=== PATIENT | male | born 1990 | race Caucasian/White ===

== ENCOUNTER 2019-06-30 23:42 | Emergency (ER) | payer SELFPAY ==
[2019-06-30 23:43] VITALS: BP 142/67; PULSE 74; RESP 14; TEMP 36.6; O2SAT 99; BMI 26.4
--- NOTE | 2019-06-30 23:53 | ED.VIS.GEN ---
History of Present Illness Chief Complaint: Wound Check Narrative: Patient is a 29-year-old male who presents for a wound check. He was doing some work at his house and had a utility knife sitting on the steps. As he walked by he accidentally stepped on a knife and suffered a small puncture wound at the bottom of his left fourth toe. This seemed to have healed well initially but today he developed increased pain and noted some purulent drainage. No fevers nausea vomiting. He is not diabetic. He denies any medical problems or daily medications. Past Medical History - Allergies and Home Meds Allergies/Adverse Reactions: Allergies No Known Allergies Allergy (Verified 06/30/19 23:46) Primary Care Physician: Care Physician,No Primary [Primary Care Provider] - Past Medical History: None Smoking Status: Current every day smoker Review of Systems All systems negative except as indicated General: Denies: Fever Cardiovascular: Denies: Chest pain Respiratory: Denies: Dyspnea Gastrointestinal: Denies: Nausea, Vomiting Skin: Reports: Wounds. Denies: Rash Neurological: Denies: Headache Physical Exam Vital Signs/Narrative: Vital Signs Temp Pulse Resp BP Pulse Ox 06/30/19 23:43 97.8 F 74 14 142/67 H 99 Inital Vital Signs reviewed: Yes General: Well nourished Head: Normocephalic Eyes: EOMI ENT: Moist mucous membranes Neck: Supple Cardiovascular: Regular rate Respiratory: No distress Skin: Normal color, - - There is a 2 to 3 mm puncture wound at the base of the left fourth toe on the plantar surface with a small amount of purulent drainage, no fluctuance or focal abscess, no surrounding cellulitis he has brisk capillary refill with normal sensation and motor function is intact Neurological: Alert Psychological: Normal affect Diagnostic/Tx/Re-eval - Medical Decision Making Wound culture was obtained. Patient was prescribed Keflex and Bactrim. He understands to return for new or worsening symptoms and was advised on signs and symptoms to monitor for and was discharged home. ED Disposition - Plan for ED Patient: Disposition: Home or Assisted Living Diagnosis: Wound infection, Puncture wound of foot Instructions: PUNCTURE WOUND, Foot Prescriptions: Smz/Tmp Ds [Bactrim Ds] 1 tab PO BID #14 tab Prescription Printed Cephalexin [Keflex] 500 mg PO Q6 #40 cap Prescription Printed Referrals: Care Physician,No Primary [Primary Care Provider] -
[2019-07-01] MEDS: Cephalexin 250 MG Capsule 500 MG PO (00:12)
[2019-07-01] MEDS: Smz/Tmp Ds Tablet 1 TABLET PO (00:12)
[2019-07-01] MEDS: Diphth,Pertuss(Acell),Tet Vac 0.5 ML Vial IM (00:12)
[2019-07-01 00:27] VITALS: BP 132/71; PULSE 68; RESP 17; O2SAT 99
--- NOTE | 2019-07-03 08:50 | ED.RN ---
Dr Grant verified no action necessary after receiving culture report.
== END 2019-07-01 00:30 | disposition home or self-care (01) ==
LOC: ED 07-01 00:13
PROVIDERS: Emergency Provider Emergency Medicine
DX: S91.135A Puncture wound without foreign body of left lesser toe(s) without damage to nail, initial encounter (principal); L08.9 Local infection of the skin and subcutaneous tissue, unspecified; W22.8XXA Striking against or struck by other objects, initial encounter; Y93.9 Activity, unspecified; Y92.009 Unspecified place in unspecified non-institutional (private) residence as the place of occurrence of the external cause; Y99.9 Unspecified external cause status; F17.200 Nicotine dependence, unspecified, uncomplicated; Z23 Encounter for immunization
CPT/HCPCS: 87070; 87077; 87186; 87205; 90471; 90715; 99283

== ENCOUNTER 2020-09-08 07:11 | Emergency (ER) | payer OTHER, SELFPAY ==
[2020-09-08 07:13] VITALS: BP 131/73; PULSE 71; RESP 17; TEMP 36.5; O2SAT 96; BMI 26.9
--- NOTE | 2020-09-08 07:25 | ED.DCSUM_ITS ---
History of Present Illness Chief Complaint: Abd Pain Informant: Patient Narrative: 30-year-old male presents for the evaluation of intermittent sharp epigastric pain. Symptoms have been present since yesterday. They last maybe a minute sometimes more. They are nonradiating. No vomiting or diarrhea. Nothing seems to make it better or worse except for laying flat. Denies any prior abdominal surgeries. No fever. No history of gallbladder disease or pancreatitis. Patient has been eating and drinking well. Patient denies any urinary or bowel changes. He wonders if this could be an ulcer as he drinks a bunch. He denies any pain at the current time. Past Medical History - Allergies and Home Meds Allergies/Adverse Reactions: Allergies No Known Allergies Allergy (Verified 09/08/20 07:11) Primary Care Physician: Care Physician,No Primary [Primary Care Provider] - Past Medical History: None Surgical History: noncontributory Smoking Status: Current every day smoker Alcohol: Heavy Drugs: None Review of Systems General: Denies: Chills, Fever, Sweats Eyes: Denies: Visual changes - bilaterally, Diplopia ENT: Denies: Rhinorrhea, Sore throat Cardiovascular: Denies: Chest pain, Palpitations Respiratory: Denies: Dyspnea, Cough, Dyspnea on exertion Gastrointestinal: Reports: Abdominal pain. Denies: Nausea, Vomiting, Diarrhea, Melena, Hematochezia Genitourinary: Denies: Dysuria, Hematuria, Frequency Musculoskeletal: Denies: Back pain, Extremity Pain Skin: Denies: Rash, Wounds Neurological: Denies: Headache, Weakness, Numbness Physical Exam Vital Signs/Narrative: Vital Signs Temp Pulse Resp BP Pulse Ox 09/08/20 07:13 97.7 F L 71 17 131/73 H 96 Inital Vital Signs reviewed: Yes General: Well nourished, Well developed, No Acute Distress Head: Normocephalic, Atraumatic Eyes: Perrl, EOMI ENT: Moist mucous membranes, No rhinorrhea Neck: Supple, Nontender Cardiovascular: Regular rate, Regular rhythm, No murmurs Respiratory: No distress, CTA bilaterally, Chest nontender Abdomen: Soft, Nontender, Nondistended, Normal bowel sounds Back: Nontender, Normal Inspection Extremities: Nontender, No edema Skin: Normal color, No rash Neurological: Alert, Oriented x3, Cranial nerves II-XII grossly intact, Normal Strength, Normal Sensation Psychological: Normal affect, Normal Mood Diagnostic/Tx/Re-eval Clinical Impression(s) from Imaging Studies Abdomen/Pelvis CT 09/08/20 08:13 IMPRESSION: Diffuse submucosal thickening and edema of the stomach including the greater and lesser curvature and the gastric antrum consistent with a diffuse gastritis. No suspicious solid organ abnormality No free intraperitoneal fluid, air, or suspicious adenopathy, there are scattered subcentimeter mesenteric and retroperitoneal lymph nodes suggestive of mesenteric lymphadenitis. Electronically Signed: Albert Gomes MD at 10:34 EDT , Service support , Laboratory Last Values WBC 14.0 K/mm3 (4.4-11.0) H 09/08/20 07:45 RBC 5.28 M/mm3 (4.6-6.2) 09/08/20 07:45 Hgb 15.8 g/dL (13.0-16.5) 09/08/20 07:45 Hct 46.6 % (40-54) 09/08/20 07:45 MCV 88.3 fL (80-94) 09/08/20 07:45 MCH 29.9 pg (27.0-32.0) 09/08/20 07:45 MCHC 33.9 g/dL (32-36) 09/08/20 07:45 RDW Std Deviation 39.5 fl (35.1-43.9) 09/08/20 07:45 RDW Coeff of Zaynab 12.2 % (11.6-14.6) 09/08/20 07:45 Plt Count 362 K/mm3 (150-450) 09/08/20 07:45 MPV 9.4 fl (6.2-12.0) 09/08/20 07:45 Immature Gran % (Auto) 0.700 % (0.0-0.9) 09/08/20 07:45 Neut % (Auto) 77.7 % (47-70) H 09/08/20 07:45 Lymph % (Auto) 11.8 % (19-41) L 09/08/20 07:45 [place] % (Auto) 8.5 % (0-10) 09/08/20 07:45 Eos % (Auto) 0.8 % (0-5) 09/08/20 07:45 Baso % (Auto) 0.5 % (0-1) 09/08/20 07:45 Absolute Neuts (auto) 10.8 X10^3/uL (2.0-7.7) H 09/08/20 07:45 Absolute Lymphs (auto) 1.65 X10^3/uL (0.83-4.51) 09/08/20 07:45 Nucleated RBC % 0 % (0-5) 09/08/20 07:45 Sodium 140 mmol/L (136-145) 09/08/20 07:45 Potassium 4.1 mmol/L (3.5-5.1) 09/08/20 07:45 Chloride 105 mmol/L (98-107) 09/08/20 07:45 Carbon Dioxide 29.0 mmol/L (21.0-32.0) 09/08/20 07:45 Anion Gap 6 (5-15) 09/08/20 07:45 BUN 15 mg/dL (7-18) 09/08/20 07:45 Creatinine 1.26 mg/dL (0.70-1.30) 09/08/20 07:45 Estim Creat Clear Calc 78.06 ml/min 09/08/20 07:45 Est GFR (MDRD) Af Amer 87 mL/min (>60) 09/08/20 07:45 Est GFR (MDRD) Non-Af 72 mL/min (>60) 09/08/20 07:45 BUN/Creatinine Ratio 11.9 RATIO (10-20) 09/08/20 07:45 Glucose 111 mg/dL (74-106) H 09/08/20 07:45 Calcium 9.2 mg/dL (8.5-10.1) 09/08/20 07:45 Total Bilirubin 0.30 mg/dL (0.20-1.00) 09/08/20 07:45 AST 11 U/L (15-37) L 09/08/20 07:45 ALT 30 U/L (16-61) 09/08/20 07:45 Alkaline Phosphatase 131 U/L (45-117) H 09/08/20 07:45 Total Protein 7.5 g/dL (6.4-8.2) 09/08/20 07:45 Albumin 3.9 g/dL (3.2-5.0) 09/08/20 07:45 Globulin 3.6 g/dL (2.2-4.2) 09/08/20 07:45 Albumin/Globulin Ratio 1.1 RATIO (0.9-2.4) 09/08/20 07:45 Lipase 250 U/L (73-393) 09/08/20 07:45 - Medical Decision Making Bedside ultrasound performed by this physician at the bedside demonstrates no cholelithiasis or cholecystic fluid and negative Beverly sign. No obvious hy dronephrosis seen. CMP and lipase negative. Patient's white blood cell count is elevated at 14. Because of the vomiting the pain and the elevation of white blood cell count a CT of the abdomen pelvis was obtained. This was performed with oral and IV contrast. This demonstrated diffuse submucosal thickening of the stomach suggestive of gastritis. No free air noted. Patient drinks a substantial amount of alcohol and is a smoker. 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 Of asked him to refrain from drinking and smoking. We will place him on Protonix as well as Carafate. After 2 weeks of therapy he should consider taking a daily Pepcid. He was given return instructions and he notes understanding. ED Disposition - Plan for ED Patient: Disposition: Home or Assisted Living Diagnosis: Acute gastritis without bleeding Instructions: ED PEPTIC ULCER vs GASTRITIS Prescriptions: Sucralfate [Carafate] 1 gm PO 4X/DAY #56 tab Transmission Status: Pending to [facility] #30 Pantoprazole Sodium [Protonix] 20 mg PO BID #28 tab Transmission Status: Pending to [facility] Referrals: Karmen Riggs MD [STAFF PHYSICIAN] - 10-14 Days if not better
[2020-09-08] MEDS: Ondansetron 4 MG/2 ML Vial IV (07:53)
[2020-09-08] MEDS: Mag Hydrox/Al Hydrox/Simeth 30 ML UDC PO (07:54)
[2020-09-08 08:07] LABS: Absolute Lymphocyte Count 1.65 X10^3/uL (0.83-4.51); Absolute Neutrophil Count 10.8 X10^3/uL (2.0-7.7); Basophil# 0.07 X10^3/uL; Basophil% 0.5 % (0-1); Eosinophil# 0.11 X10^3/uL; Eosinophils% 0.8 % (0-5); Hematocrit 46.6 % (40-54); Hemoglobin 15.8 g/dL (13.0-16.5); Lymphocyte # 1.65 X10^3/ul (4.0); Lymphocyte % 11.8 % (19-41); Mean Corp Hgb Conc 33.9 g/dL (32-36); Mean Corpuscular Hgb 29.9 pg (27.0-32.0); Mean Corpuscular Volume 88.3 fL (80-94); Mean Platelet Vol. 9.4 fl (6.2-12.0); Monocyte# 1.19 X10^3/uL; Monocyte% 8.5 % (0-10); NRBC Flagged by Analyzer 0 % (0-5); Neutrophil # 10.83 X10^3/uL (2.7-7.7); Neutrophil % 77.7 % (47-70); Platelet Count 362 K/mm3 (150-450); RBC Distribution Width CV 12.2 % (11.6-14.6); RBC Distribution Width SD 39.5 fl (35.1-43.9); Red Blood Count 5.28 M/mm3 (4.6-6.2)
--- NOTE | 2020-09-08 08:13 | CT_ITS ---
STUDY: CT ABDOMEN AND PELVIS WITH CONTRAST REASON FOR EXAM: Male, 30 years old. Abdominal pain leukocytosis vomiting RADIATION DOSAGE (If Supplied By Facility): CTDIvol = ( 12.24 ) mGy, DLP = ( 1108.52 ) mGycm TECHNIQUE: Transaxial images were obtained from the dome of the diaphragm to the symphysis pubis with oral contrast. Oral and amp; IV Gastrografin and amp; 100mL Isovue-370 was administered. Sagittal and coronal images were reconstructed. Individualized dose optimization techniques were used for this CT. COMPARISON: None. FINDINGS: The visualized lung bases are unremarkable. The visualized portions of the heart are within normal limits. Normal liver. Normal gallbladder and extrahepatic biliary system. Normal spleen. Normal pancreas. Normal bilateral adrenal glands. Normal right kidney. Normal left kidney. Diffuse submucosal thickening of the stomach suggests gastritis. Normal small intestine. Normal colon. There is non-visualization of the appendix. Normal abdominal aorta. Normal inferior vena cava. Normal retroperitoneum. Normal urinary bladder. Normal abdominal wall. Normal osseous structures. CT/Abdomen/Pelvis WITH Contrast IMPRESSION: Diffuse submucosal thickening and edema of the stomach including the greater and lesser curvature and the gastric antrum consistent with a diffuse gastritis. No suspicious solid organ abnormality No free intraperitoneal fluid, air, or suspicious adenopathy, there are scattered subcentimeter mesenteric and retroperitoneal lymph nodes suggestive of mesenteric lymphadenitis. Electronically Signed: Albert Gomes MD at 10:34 EDT , Service support ,
[2020-09-08 09:02] LABS: ALB/GLOB Ratio 1.1 RATIO (0.9-2.4); AST(SGOT) 11 U/L (15-37); Alanine Aminotransfer ALT/SGPT 30 U/L (16-61); Albumin, Serum 3.9 g/dL (3.2-5.0); Alkaline Phosphatase 131 U/L (45-117); Anion Gap 6 (5-15); BUN 15 mg/dL (7-18); BUN/Creat Ratio 11.9 RATIO (10-20); Calcium,Total 9.2 mg/dL (8.5-10.1); Chloride 105 mmol/L (98-107); Creatinine, Serum 1.26 mg/dL (0.70-1.30); EST Glomerular Filtration Rate 72 mL/min (>60); Est Glom Filt Rate - Afr Amer 87 mL/min (>60); Estimated Creatinine Clearance 78.06 ml/min; Globulin 3.6 g/dL (2.2-4.2); Glucose 111 mg/dL (74-106); Lipase 250 U/L (73-393); Potassium 4.1 mmol/L (3.5-5.1); Protein, Total 7.5 g/dL (6.4-8.2); Sodium Level 140 mmol/L (136-145)
[2020-09-08 10:15] VITALS: BP 134/80; PULSE 67; RESP 14; O2SAT 98
[2020-09-08 11:00] VITALS: BP 142/86; PULSE 71; RESP 14; O2SAT 98
== END 2020-09-08 11:01 | disposition home or self-care (01) ==
PROVIDERS: Emergency Provider Emergency Medicine
DX: K29.00 Acute gastritis without bleeding (principal); F17.200 Nicotine dependence, unspecified, uncomplicated; Z79.899 Other long term (current) drug therapy
CPT/HCPCS: 74177; 80053; 83690; 85025; 96374; 99283; Q9967; A4216; J2405